=== PATIENT | female | born 1995 | race African-American/Black ===

== ENCOUNTER 2017-02-11 15:46 | Emergency (ER) | payer OTHER ==
[~2017-02-11] VITALS: Ht 165.1 cm; Wt 80.0 kg
[~2017-02-11 15:46] MED LIST: ALBU6.7H INH; DOXY100T PO; PRED20 PO
[2017-02-11 15:49] VITALS: BP 120/77; PULSE 72; RESP 19; TEMP 97.3; O2SAT 99
--- NOTE | 2017-02-11 16:02 | PD ---
Physical Exam Time Seen by Provider: 16:00 Narrative 21-year-old female, with history of asthma, presents thinking that she has a respiratory infection. Reports cough 2 weeks. Reports chest tightness and shortness of breath. Reports wheezing. Has been using her Advair and Albuterol inhaler. Patient seen in triage. Vital signs reviewed. Patient awaiting bed placement. Data Data Last Documented VS Vital Signs Date Time Temp Pulse Resp B/P (MAP) Pulse Ox O2 Delivery O2 Flow Rate FiO2 02/11/17 15:49 97.3 72 19 120/77 (91) 99 Room Air [facility] Supervised Visit with SARA: Jasmina Baker Feb 11, 2017 16:02
[2017-02-11] MEDS ORDERED: ZITHTAB PO (16:25)
[2017-02-11] MEDS ORDERED: ALBUAER3 INH (16:25)
[2017-02-11] MEDS ORDERED: PRED50 PO (16:25)
--- NOTE | 2017-02-11 16:25 | PD ---
HPI Chief Complaint: Respiratory Symptoms Time Seen by Provider: 16:14 Travel History International Travel<30 days: No Contact w/Intl Traveler<30days: No Traveled to known affect area: No History of Present Illness HPI 21-year-old female history of asthma presents to emergency department for evaluation of cough and chest congestion worsening over the last 2 weeks. Patient states her cough has become productive. She is concerned because she is using her inhaler more often. Has felt chilled but uncertain of fever. Denies any pain. Denies nausea or vomiting. Her throat is sore, moderate in severity. Denies any other symptoms at this time. PFSH Past Medical History Asthma: Yes Respiratory: Yes ?: Not LMP: 02/07/17 Social History Alcohol Use: No Tobacco Use: No Allergies-Medications (Allergen,Severity, Reaction): Coded Allergies: No Known Allergies (Unverified , 02/11/17) Reported Meds & Prescriptions Reported Meds & Active Scripts Active Proair Hfa 8.5 GM Inh (Albuterol Sulfate) 90 Mcg/Act Aer 2 Puff INH Q4H PRN 108 mcg/actuation Zithromax Z-Yung (Azithromycin) 250 Mg Dspk 250 Mg PO DIRECTED 500 MG (2 tabs) day 1, then 1 tab days 2-5. Prednisone 50 Mg Tab 50 Mg PO DAILY 5 Days Doxycycline Hyclate 100 mg (Doxycycline Hyclate) 100 Mg Tab 100 Mg PO BID TAKE UNTIL GONE Deltasone (Prednisone) 20 Mg Tab 20 Mg PO TID Proventil Hfa (Albuterol Sulfate) 6.7 Gm Aero 2 Puff INH Q4H * SHAKE WELL BEFORE USE * Review of Systems Except as stated in HPI: all other systems reviewed are Neg Physical Exam Narrative GENERAL: Well-nourished female patient, in no acute distress. SKIN: Focused skin assessment warm/dry. HEAD: Atraumatic. Normocephalic. EYES: Pupils equal and round. No scleral icterus. No injection or drainage. ENT: No nasal bleeding or discharge. Mucous membranes pink and moist. Pharynx with erythema. No exudates. NECK: Trachea midline. No JVD. CARDIOVASCULAR: Regular rate and rhythm. No murmur appreciated. RESPIRATORY: No accessory muscle use. Diminished to auscultation. Breath sounds equal bilaterally. GASTROINTESTINAL: Abdomen soft, non-tender, nondistended. Hepatic and splenic margins not palpable. MUSCULOSKELETAL: No obvious deformities. No clubbing. No cyanosis. No edema. NEUROLOGICAL: Awake and alert. No obvious cranial nerve deficits. Motor grossly within normal limits. Normal speech. PSYCHIATRIC: Appropriate mood and affect; insight and judgment normal. Data Data Last Documented VS Vital Signs Date Time Temp Pulse Resp B/P (MAP) Pulse Ox O2 Delivery O2 Flow Rate FiO2 02/11/17 16:56 02/11/17 15:49 97.3 72 19 99 Room Air Orders Orders Ed Discharge Order (02/11/17 16:25) MDM Medical Decision Making Medical Screen Exam Complete: Yes Emergency Medical Condition: Yes Medical Record Reviewed: Yes Differential Diagnosis Asthma exacerbation versus pneumonia versus influenza versus other URI Narrative Course 21-year-old female with history of asthma presents to emergency department for evaluation of cough and chest congestion over the last 2 weeks. Patient appears without distress. She does have diminished breath sounds. She is using her inhaler more often. Patiently treated for URI which is likely exacerbating her asthma. She is encouraged to follow-up with primary care provider and return immediately with any acute worsening of symptoms. Diagnosis Primary Impression: URI (upper respiratory infection) Qualified Codes: J06.9 - Acute upper respiratory infection, unspecified Additional Impression: Asthma Qualified Codes: J45.901 - Unspecified asthma with (acute) exacerbation Referrals: Primary Care Physician Patient Instructions: General Instructions, Upper Respiratory Infection (DC) Additional Instructions: Humidifier may help to alleviate symptoms Continue asthma medication as already prescribed Follow-up with primary care provider Return immediately with any acute worsening of symptoms Med/Other Pt SpecificInfo: Prescription(s) given Scripts Albuterol 8.5 GM Inh (Proair Hfa 8.5 GM Inh) 90 Mcg/Act Aer 2 PUFF INH Q4H Y for SHORTNESS OF BREATH, #1 INHALER 0 Refills 108 mcg/actuation Prov: Ela Ndiaye 02/11/17 Azithromycin (Zithromax Z-Yung) 250 Mg Dspk 250 MG PO DIRECTED for Infection, #1 DSPK 0 Refills 500 MG (2 tabs) day 1, then 1 tab days 2-5. Prov: Ela Ndiaye 02/11/17 Prednisone (Prednisone) 50 Mg Tab 50 MG PO DAILY for 5 Days, #5 TAB 0 Refills Prov: Ela Ndiaye 02/11/17 Disposition: 01 DISCHARGE HOME Condition: Stable Ela Ndiaye Feb 11, 2017 16:25
== END 2017-02-11 16:57 | disposition home or self-care (01) ==
LOC: NEPK 15:46
DX: J06.9 Acute upper respiratory infection, unspecified (principal); J45.901 Unspecified asthma with (acute) exacerbation
CPT/HCPCS: 99284

== ENCOUNTER 2017-02-15 21:13 | Emergency (ER) | payer OTHER ==
[~2017-02-15 21:13] MED LIST changes: +ALBUAER3 INH; +PRED50 PO; +ZITHTAB PO
[2017-02-15 21:16] VITALS: BP 125/85; PULSE 65; RESP 16; TEMP 98.5; O2SAT 100
--- NOTE | 2017-02-16 00:27 | RADRPT ---
EXAM DATE/TIME: 02/16/2017 00:00 [place] COMPARISON: No previous studies available for comparison. INDICATIONS : Short of breath, cough. MEDICAL HISTORY : None. SURGICAL HISTORY : None. ENCOUNTER: Initial ACUITY: 1 day PAIN SCORE: 0/10 LOCATION: Bilateral chest FINDINGS: PA and lateral views of the chest demonstrate the lungs to be symmetrically aerated without evidence of mass, infiltrate or effusion. The cardiomediastinal contours are unremarkable. Osseous structure s are intact. CONCLUSION: 1. No acute cardiopulmonary disease. Dylon Vazquez MD on February 16, 2017 at 0:26 Board Certified Radiologist. This report was verified electronically.
[2017-02-16] MEDS ORDERED: IBUP800T23 PO (01:12)
[2017-02-16] MEDS ORDERED: FLUT50SP EACH NARE (01:12)
--- NOTE | 2017-02-16 01:12 | PD ---
HPI Chief Complaint: Respiratory Symptoms Time Seen by Provider: 00:59 Travel History International Travel<30 days: No Contact w/Intl Traveler<30days: No Traveled to known affect area: No History of Present Illness HPI Patient's a 21-year-old female presenting to emergency evaluation of a cough and rib pain. Patient states that she was seen a few days ago and prescribed antibiotics and steroids of which she completed today. She states that when she takes a deep breath or cough her ribs hurt. She denies any further fevers or chills, she denies any nausea or vomiting, headache or shortness of breath. She reports a history of asthma but states her symptoms have improved. PFSH Past Medical History Asthma: Yes Respiratory: Yes (ASTHMA) ?: Not LMP: 02/13/17 Social History Alcohol Use: No Tobacco Use: No Allergies-Medications (Allergen,Severity, Reaction): Coded Allergies: No Known Allergies (Unverified , 02/15/17) Reported Meds & Prescriptions Reported Meds & Active Scripts Active Proair Hfa 8.5 GM Inh (Albuterol Sulfate) 90 Mcg/Act Aer 2 Puff INH Q4H PRN 108 mcg/actuation Zithromax Z-Yung (Azithromycin) 250 Mg Dspk 250 Mg PO DIRECTED 500 MG (2 tabs) day 1, then 1 tab days 2-5. Prednisone 50 Mg Tab 50 Mg PO DAILY 5 Days Doxycycline Hyclate 100 mg (Doxycycline Hyclate) 100 Mg Tab 100 Mg PO BID TAKE UNTIL GONE Deltasone (Prednisone) 20 Mg Tab 20 Mg PO TID Proventil Hfa (Albuterol Sulfate) 6.7 Gm Aero 2 Puff INH Q4H * SHAKE WELL BEFORE USE * Review of Systems Except as stated in HPI: all other systems reviewed are Neg Respiratory: Positive: Cough, Pleuritic Pain Physical Exam Narrative GENERAL: Well-developed, well-nourished, alert female. Resting comfortably in no acute distress. SKIN: Warm and dry. HEAD: Normocephalic. EYES: No scleral icterus. No injection or drainage. NECK: Supple, trachea midline. No JVD or lymphadenopathy. CARDIOVASCULAR: Regular rate and rhythm without murmurs, gallops, or rubs. RESPIRATORY: Breath sounds equal bilaterally. No accessory muscle use. No wheezing, rhonchi, rales noted. GASTROINTESTINAL: Abdomen soft, non-tender, nondistended. MUSCULOSKELETAL: No cyanosis, or edema. BACK: Nontender without obvious deformity. No CVA tenderness. Data Data Last Documented VS Vital Signs Date Time Temp Pulse Resp B/P (MAP) Pulse Ox O2 Delivery O2 Flow Rate FiO2 02/15/17 21:16 98.5 65 16 125/85 (98) 100 Orders Orders Chest, Pa & Lat (02/15/17 ) MDM Medical Decision Making Medical Screen Exam Complete: Yes Emergency Medical Condition: Yes Interpretation(s) Last Impressions Chest X-Ray 02/15/17 0000 Signed Impressions: Service Date/Time: Thursday, February 16, 2017 00:00 - CONCLUSION: 1. No acute cardiopulmonary disease. Dylon Vazquez MD Vital Signs Date Time Temp Pulse Resp B/P (MAP) Pulse Ox O2 Delivery O2 Flow Rate FiO2 02/15/17 21:16 98.5 65 16 125/85 (98) 100 Differential Diagnosis Pleurisy versus costochondritis versus pneumonia versus other Narrative Course Patient is a 21-year-old female that presented to the emergency room for evaluation of a lingering dry cough as well as pleuritic pain. Vital signs are stable, patient is afebrile. She is well oxygenated on room air. Chest x-ray which was read by the radiologist shows no acute disease. No adventitious breath sounds noted on exam. At this time patient's pain. Physical examination appears consistent with pleuritic pain. Patient was encouraged to take ibuprofen as needed and as directed for the pain. She was also encouraged to continue symptomatic management. She was encouraged to follow-up with her primary doctor return to emergency department for any new or worsening symptoms. Patient verbalized understanding of these instructions. Patient is stable for discharge. Diagnosis Primary Impression: Costochondritis Referrals: Primary Care Physician 1 week Patient Instructions: Costochondritis (ED), General Instructions Additional Instructions: Take medications as needed and as directed for pain Continue symptom management Return to emergency department for any new or worsening symptoms Follow-up with your primary doctor Med/Other Pt SpecificInfo: Prescription(s) given Scripts Ibuprofen (Ibuprofen) 800 Mg Tab 800 MG PO Q6HR Y for PAIN, #40 TAB 0 Refills Prov: Izabel Sousa 02/16/17 Fluticasone Nasal [place] (Fluticasone Nasal [place]) 50 Mcg/Act Naspr 100 MCG EACH NARE DAILY for Allergy Management, #1 BOTTLE 0 Refills 50 mcg/spray Prov: Izabel Sousa 02/16/17 Disposition: 01 DISCHARGE HOME Condition: Stable Izabel Sousa Feb 16, 2017 01:12
[2017-02-16] MEDS ORDERED: IBUPROFEN 800 MG TAB PO ONE (01:15)
== END 2017-02-16 01:59 | disposition home or self-care (01) ==
LOC: NEPD 21:13
DX: M94.0 Chondrocostal junction syndrome [Tietze] (principal); J45.909 Unspecified asthma, uncomplicated
CPT/HCPCS: 71020; 99283

== ENCOUNTER 2017-06-14 20:26 | Emergency (ER) | payer OTHER ==
[~2017-06-14 20:26] MED LIST changes: +FLUT50SP EACH NARE; +IBUP1TAB7 PO
[2017-06-14 20:28] VITALS: BP 128/77; PULSE 61; RESP 16; TEMP 97.6; O2SAT 99
[2017-06-14] MEDS ORDERED: ADVA115A INH (21:08)
[2017-06-14] MEDS ORDERED: SPRI28TA PO (21:08)
[2017-06-14] MEDS ORDERED: POLY10O LEFT EYE (21:13)
--- NOTE | 2017-06-14 21:13 | PD ---
HPI Chief Complaint: Eye Problems/Injury Time Seen by Provider: 20:56 Travel History International Travel<30 days: No Contact w/Intl Traveler<30days: No Traveled to known affect area: No History of Present Illness HPI 21-year-old female complains of left eye irritation. Patient has foreign body sensation in the left eye for the past 2 days. Patient denies any injury to the left eye. Patient stated that she has mild photophobia to the left eye. Patient states that she had intermittent sharp pains in her left eye. Patient states that she had intermittent tearing from the left eye also. PFSH Past Medical History Asthma: Yes Respiratory: Yes (ASTHMA) Social History Alcohol Use: No Tobacco Use: No Allergies-Medications (Allergen,Severity, Reaction): Coded Allergies: No Known Allergies (Unverified , 02/15/17) Reported Meds & Prescriptions Reported Meds & Active Scripts Active Ibuprofen 800 Mg Tab 800 Mg PO Q6HR PRN Fluticasone Nasal [place] 50 Mcg/Act Naspr 100 Mcg EACH NARE DAILY 50 mcg/spray Proair Hfa 8.5 GM Inh (Albuterol Sulfate) 90 Mcg/Act Aer 2 Puff INH Q4H PRN 108 mcg/actuation Zithromax Z-Yung (Azithromycin) 250 Mg Dspk 250 Mg PO DIRECTED 500 MG (2 tabs) day 1, then 1 tab days 2-5. Prednisone 50 Mg Tab 50 Mg PO DAILY 5 Days Doxycycline Hyclate 100 mg (Doxycycline Hyclate) 100 Mg Tab 100 Mg PO BID TAKE UNTIL GONE Deltasone (Prednisone) 20 Mg Tab 20 Mg PO TID Proventil Hfa (Albuterol Sulfate) 6.7 Gm Aero 2 Puff INH Q4H * SHAKE WELL BEFORE USE * Review of Systems General / Constitutional: No: Fever Eyes: Positive: Photophobia, Foreign Body Sensation, Pain, Tearing, No: Visual changes HENT: No: Headaches Cardiovascular: No: Chest Pain or Discomfort Respiratory: No: Shortness of Breath Gastrointestinal: No: Abdominal Pain Genitourinary: No: Dysuria Musculoskeletal: No: Pain Skin: No Rash Neurologic: No: Weakness Psychiatric: No: Depression Endocrine: No: Polydipsia Hematologic/Lymphatic: No: Easy Bruising Physical Exam Narrative GENERAL: Well-nourished, well-developed patient. SKIN: Focused skin assessment warm/dry. HEAD: Normocephalic. EYES: No scleral icterus. No injection or drainage. Left eye staining with fluorescein staining reveals mild uptake in the left cornea and conjunctival area. No foreign body noted. Upper eyelid lower lid everted no foreign body noted. NECK: Supple, trachea midline. No JVD or lymphadenopathy. CARDIOVASCULAR: Regular rate and rhythm without murmurs, gallops, or rubs. RESPIRATORY: Breath sounds equal bilaterally. No accessory muscle use. GASTROINTESTINAL: Abdomen soft, non-tender, nondistended. MUSCULOSKELETAL: No cyanosis, or edema. BACK: Nontender without obvious deformity. No CVA tenderness. Data Data Last Documented VS Vital Signs Date Time Temp Pulse Resp B/P (MAP) Pulse Ox O2 Delivery O2 Flow Rate FiO2 06/14/17 20:28 97.6 61 16 128/77 (94) 99 Room Air MDM Medical Decision Making Medical Screen Exam Complete: Yes Emergency Medical Condition: Yes Differential Diagnosis Differential diagnosis including corneal abrasion, corneal ulcer, foreign body, iritis, keratitis. Narrative Course 21-year-old female with left eye irritation. Diagnosis Primary Impression: Left corneal abrasion Qualified Codes: S05.02XA - Injury of conjunctiva and corneal abrasion without foreign body, left eye, initial encounter Patient Instructions: General Instructions Additional Instructions: Polytrim ophthalmic solution as directed. Tylenol for pain. Follow-up with personal physician or manager intermediate. Return if persistent problem or worse. Med/Other Pt SpecificInfo: Prescription(s) given Scripts Polymyxin B-Trimethoprim Opth Drops (Polytrim Opth Drops) 10,000-0.1 Unit/Ml-% Soln 1 DROP LEFT EYE QID for Mgmt Bacterial Infection, #1 BOTTLE 0 Refills Prov: Jose David Cortes MD 06/14/17 Disposition: 01 DISCHARGE HOME Condition: Stable Jose David Cortes MD Jun 14, 2017 21:13
== END 2017-06-14 21:35 | disposition home or self-care (01) ==
LOC: NEPD 20:26
DX: S05.02XA Injury of conjunctiva and corneal abrasion without foreign body, left eye, initial encounter (principal); J45.909 Unspecified asthma, uncomplicated; X58.XXXA Exposure to other specified factors, initial encounter
CPT/HCPCS: 99283